=== PATIENT | female | born 1960 | race Caucasian/White ===

== ENCOUNTER 2020-07-09 11:53 | Emergency (ER) | payer BC ==
[~2020-07-09] VITALS: Ht 170.2 cm; Wt 104.3 kg
[~2020-07-09 11:53] MED LIST: NOHOMEMEDICATIONS; NORCO 5-325 TA1 EACH PO
[2020-07-09] MEDS ORDERED: NORCO5 PO ×2 (13:33→13:36)
[2020-07-09] MEDS ORDERED: KEFLEX500 M1 PO ×3 (13:33→13:45)
[2020-07-09] MEDS ORDERED: PREDNISONE 10 M10 MG PO ×2 (13:33→13:36)
[2020-07-09 13:52] VITALS: BP 144/125
== END 2020-07-09 13:53 | disposition home or self-care (01) ==
LOC: M.ERS 11:53
DX: M25.475 Effusion, left foot (principal); M79.675 Pain in left toe(s); Z88.8 Allergy status to other drugs, medicaments and biological substances; Z91.018 Allergy to other foods